=== PATIENT | female | born 2000 | race African-American/Black ===

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

== ENCOUNTER 2020-06-17 13:08 | Emergency (ER) | payer MEDICAID, OTHER ==
[~2020-06-17] VITALS: Ht 154.9 cm; Wt 67.6 kg
[~2020-06-17 13:08] MED LIST: CLOTRIMAZOLE15 GM TOPIC; NKM
--- NOTE | 2020-06-17 14:30 | NUR ---
ED Nurse Note:pt. c/o abdominal pain and nausea, given po meds and fluids challenge
[2020-06-17 14:36] LABS: APPEARANCE,URINE SLIGHTLY CLOUDY; BILIRUBIN, URINE NEGATIVE (NEGATIVE); COLOR,URINE PALE YELLOW; GLUCOSE, URINE (UA) NEGATIVE (NEGATIVE); KETONES,URINE NEGATIVE (NEGATIVE); LEUKOCYTE ESTERASE ,URINE 1+ (NEGATIVE); NITRITE,URINE NEGATIVE (NEGATIVE); PH,URINE 5 (4.5-8.0); PROTEIN,URINE NEGATIVE (NEGATIVE); UROBILINOGEN,URINE NORMAL MG/DL (0.0-1.0)
--- NOTE | 2020-06-17 14:51 | Emergency Room Report ---
History of Present Illness General Chief Complaint: Vomiting Source: Patient Present Illness HPI 19 YO female presents to the ED c/o 12/29 in severity body aches, nausea, vomiting, JURADO -progressive x 3 days. Pt. reports new onset of cough. Pt. denies photophobia, neck pain or stiffness.. Denies suspicion of . Reports taking BC. Denies abdominal tenderness. She denies fevers or chills. Denies blood in the vomitus or black tarry stools. Denies constipation or diarrhea. She denies history of asthma, COPD or smoking history. She denies THC use. Denies recent travel. Denies contact with persons who have tested positive for or are under investigation/quarantine for COVID-19. Patient is reporting that she found her significant other to be with other partners and states that she wants to be treated for STD as well. She denies pelvic pain. Patient denies vaginal discharge. She denies rashes or genital sores. Allergies: Coded Allergies: No Known Allergies (Unverified , 01/05/13) COVID-19 Screening Contact w/high risk pt: No Experienced COVID-19 symptoms?: No COVID-19 Testing performed MAIL WEIGHER: No Patient History Past Medical History: see triage record Past Surgical History: none Pertinent Family History: none Last Menstrual Period: 04/21/2020 Now: No Reviewed Nursing Documentation: PMH: Agreed; PSxH: Agreed Nursing Documentation-PMH Past Medical History: No Stated History Review of Systems All Other Systems: negative except mentioned in HPI Physical Exam Vital Signs Date Time Temp Pulse Resp B/P (MAP) Pulse Ox O2 Delivery O2 Flow Rate FiO2 06/17/20 13:27 97.9 71 18 112/75 (87) 99 Room Air Sp02 EP Interpretation: reviewed, normal General Appearance: no apparent distress, alert, GCS 15, non-toxic Head: normocephalic, atraumatic Eyes: bilateral eye normal inspection, bilateral eye PERRL, bilateral eye other - no photophobia ENT: hearing grossly normal, normal pharynx, normal voice Neck: full range of motion, no meningismus Respiratory: lungs clear, normal breath sounds, speaking full sentences, wheezing - scant wheezing inspiratory bilaterally Cardiovascular #1: regular rate, rhythm, normal capillary refill Gastrointestinal: normal bowel sounds, non tender, soft, non-distended, no guarding Rectal: deferred Genitourinary: normal inspection, no CVA tenderness Musculoskeletal: back normal, normal range of motion, gait/station normal, non- tender Neurologic: alert, motor strength/tone normal, oriented x3, sensory intact, responsive, speech normal Psychiatric: judgement/insight normal Skin: no rash, normal color Lymphatic: no adenopathy Medical Decision Making PA Attestation Dr. Thomas is my supervising Physician whom patient management has been discussed with. Diagnostic Impression: Primary Impression: UTI (urinary tract infection) Qualified Codes: N30.00 - Acute cystitis without hematuria Additional Impressions: Acute viral syndrome Cough ER Course Ddx considered but are not limited to UTi , Pyelo, STI, Stone, Cystitis, viral syndrome, GE, , COVID-19 just name a few Vital signs: are WNL, pt. is afebrile H&PE are most consistent with UTI ORDERS: - UA labs are attached : Presence of bacteria and increase in inflammatory markers we will treat for UTI. -Urine hCG: Negative -Chest x-ray 1 view: Unremarkable ED INTERVENTIONS: -250 international units of Rocephin IM DISCHARGE: At this time pt. is stable for d/c to home. Will provide printed patient care instructions, and any necessary prescriptions. Care plan and follow up instructions have been discussed with the patient prior to discharge. Labs Test 06/17/20 14:10 Urine Color Pale yellow Urine Appearance Slightly cloudy Urine pH 5 (4.5-8.0) Urine Specific [place] 1.015 (1.005-1.035) Urine Protein Negative (NEGATIVE) Urine Glucose (UA) Negative (NEGATIVE) Urine Ketones Negative (NEGATIVE) Urine Blood 3+ (NEGATIVE) Urine Nitrite Negative (NEGATIVE) Urine Bilirubin Negative (NEGATIVE) Urine Urobilinogen Normal MG/DL (0.0-1.0) Urine Leukocyte Esterase 1+ (NEGATIVE) Urine RBC 10-15 /HPF (0 - 2) Urine WBC 5-10 /HPF (0 - 2) Urine Squamous Epithelial Cells Many /LPF (NONE/OCC) Urine Bacteria Moderate /HPF (NONE) Urine HCG, Qualitative Negative (NEGATIVE) Chest X-Ray Diagnostic Results Chest X-Ray Diagnostic Results : Chest X-Ray Ordered: Yes # of Views/Limited/Complete: 1 View Indication: Shortness of Breath EP Interpretation: Yes PA Xray: Interpretation reviewed, by supervising MD, and agrees with findings. Interpretation: no consolidation, no effusion, no pneumothorax, no acute cardiopulmonary disease Impression: No acute disease Electronically Signed by: Abida Oliver PA-C Last Vital Signs Date Time Temp Pulse Resp B/P (MAP) Pulse Ox O2 Delivery O2 Flow Rate FiO2 06/17/20 13:27 97.9 71 18 112/75 (87) 99 Room Air Disposition: HOME, SELF-CARE Condition: Stable Scripts Cephalexin* (KEFLEX*) 500 Mg Capsule 500 MG ORAL EVERY 12 HOURS for 7 Days, #14 CAP 0 Refills Prov: Abida Oliver 06/17/20 Ibuprofen* (MOTRIN*) 400 Mg Tablet 400 MG ORAL THREE TIMES A DAY for 5 Days, #15 TAB 0 Refills Prov: Abida Oliver 06/17/20 Albuterol Sulfate* (Albuterol Sulfate Hfa*) 8.5 Gm Hfa.aer.ad 2 PUFF INH Q4H, #1 INH Prov: Abida Oliver 06/17/20 Ondansetron Odt* (ZOFRAN ODT*) 4 Mg Tab.rapdis 4 MG BC EVERY 6 HOURS PRN for Nausea & Vomiting, #10 TAB 0 Refills Prov: Abida Oliver 06/17/20 Doxycycline Monohydrate* (DOXYCYCLINE MONOHYDRATE*) 100 Mg Capsule 100 MG ORAL TWICE A DAY for 7 Days, #14 CAP 0 Refills Prov: Abida Oliver 06/17/20 Referrals: [facility] Patient Instructions: Cough, Adult, [id number], Nausea and Vomiting, Adult, Urinary Tract Infection Additional Instructions: ~ ~ An emergent medical condition has not been identified based on this patients presentation, exam and any necessary testing/imaging. The patient is determined to be stable for outpatient follow-up and management of symptoms by a primary care provider. Isolate and avoid contact with others until your symptoms have completely resolved. Take medications as directed. Follow up with a Primary Care Provider in 3-5 days, even if your symptoms have resolved. --Please review list of primary care clinics, if you do not already have a primary care provider Return sooner to ED if new symptoms occur, or current symptoms become worse. - Please note that this Emergency Department Report was dictated using [employer] prepress operator technology software, occasionally this can lead to erroneous entry secondary to interpretation by the dictation equipment. Abida Oliver Jun 17, 2020 14:51
[2020-06-17 15:29] VITALS: BP 112/75
[2020-06-17] MEDS ORDERED: ALBUTEROL SULF8.5 G1 INH (15:56)
[2020-06-17] MEDS ORDERED: IBUPROFEN400 MG ORAL (15:56)
[2020-06-17] MEDS ORDERED: DOXYCYCLINE MO100 MG ORAL (15:56)
[2020-06-17] MEDS ORDERED: ONDANSETRON ODT4 MG BC (15:56)
[2020-06-17] MEDS ORDERED: CEPHALEXIN500 MG ORAL (15:59)
[2020-06-17] MEDS ORDERED: Lidocaine 1% MPF 10mg/ml 5ml INJ ONE (16:00)
--- NOTE | 2020-06-17 16:53 | Diagnostic Imaging Report ---
Indication: Chest pain Technique: One view of the chest Comparison: none Findings: Lungs and pleural spaces are clear. Heart size is normal. Impression: No acute process
[2020-06-17 17:00] VITALS: BP 112/75
--- NOTE | 2020-06-17 17:00 | NUR ---
ED Nurse Note: Pt cleared by health care Provider for discharge. DC instructions/prescription was given and explained to pt and verbalized understanding of teachings. All medical deviecs such as ID band removed. Pt is AAO x4, ambulatory and left with all personal belongings.
== END 2020-06-17 17:00 | disposition home or self-care (01) ==
LOC: EMR 14:20
DX: N30.00 Acute cystitis without hematuria (principal); B34.9 Viral infection, unspecified; R05 Cough
CPT/HCPCS: 71045; 81003; 81025; 87086; 96372; J0696; Z7502; 99284